=== PATIENT | female | born 1990 | race Two or more races ===

== ENCOUNTER → 2017-01-03 | Outpatient (CLI) | payer BC ==
--- NOTE | 2017-01-03 09:25 | MR ---
EXAMINATION TYPE: MR lumbar spine wo con DATE OF EXAM: 01/03/2017 COMPARISON: 08/17/2013 HISTORY: low back pain CONTRAST: 0 mL intravenous Gadavist. TECHNIQUE: Multiplanar, multisequence images of the lumbar spine were acquired. FINDINGS: Cord terminates at the L1 level. L5-S1: There is a large right paracentral disc herniation displacing the thecal sac towards the left. The exiting nerve root is compressed and displaced. Spinal canal stenosis secondary to disc herniati on. This is a significant new finding from 08/17/2013. Mild disc desiccation is present. L4-L5: There is a central disc herniation with moderate size and mild to moderate anterior thecal sac compression. Subligamentous disc extension is likely present centrally over the inferior endplate of L5. AP spinal canal stenosis is not present. Some possible contact of the exiting right L5 nerve solo t may be present. No spinal canal stenosis. No foraminal stenosis. Mild disc desiccation is presen t.. L3-L4: Broad-based disc bulge has mild anterior thecal sac contact. No AP spinal canal stenosis or ne ural foraminal stenosis is present. Minimal disc desiccation is present. L2-L3: No significant disc bulge or disc herniation. No spinal canal stenosis. No foraminal stenosi s. Neural foramen are patent.. L1-L2: No significant disc bulge or disc herniation. No spinal canal stenosis. No foraminal stenosi s. Neural foramen are patent.. T12-L1: No significant disc bulge or disc herniation. No spinal canal stenosis. No foraminal stenos is. Neural foramen are patent.. IMPRESSION: 1. Large right paracentral broad-based disc herniation L5-S1 with right S1 nerve root compression and displacement. There is some displacement of the thecal sac towards the left. Correlate with radicul ar right S1 symptoms. This is new from 2013. 2. Moderate central disc herniation L4-L5 with subligamentous extension inferiorly with mild to moder ate anterior thecal sac compression. Correlate for right L5 radicular symptoms.
== END | disposition home or self-care (01) ==
LOC: RADMRIMAIN 07:56
PROVIDERS: ATTEND Chiropractor
DX: M51.17 Intervertebral disc disorders with radiculopathy, lumbosacral region (principal)
CPT/HCPCS: 72148

== ENCOUNTER → 2017-01-11 | Outpatient (CLI) | payer BC ==
[2017-01-11 11:34] LABS: EKG EKG PERFORMED
--- NOTE | 2017-01-11 12:24 | XR ---
EXAMINATION TYPE: XR chest 2V DATE OF EXAM: 01/11/2017 COMPARISON: NONE TECHNIQUE: PA and lateral views submitted. HISTORY: Preop FINDINGS: The lungs are clear and there is no pneumothorax, pleural effusion, or focal pneumonia. IMPRESSION: 1. No acute process.
[2017-01-11 12:36] LABS: Partial Thromboplastin Time 25.6 sec (22.0-30.0); Prothrombin Time 10.5 sec (9.0-12.0)
[2017-01-11 12:37] LABS: Appearance,Urine Cloudy (Clear); Bacteria,Urine Rare /hpf; Basophils # (A) 0.1 k/uL (0-0.2); Basophils % (A) 1 %; Bilirubin,Urine Negative (Negative); CH 31.4; CHCM 33.5; Eosinophils # (A) 0.1 k/uL (0-0.7); Eosinophils % (A) 2 %; Glucose,Urine (UA) Negative (Negative); HCT 42.2 % (34.0-46.0); HDW 2.39; HGB 14.1 gm/dL (11.4-16.0); Ketones,Urine Negative (Negative); Leukocyte Esterase,Urine Negative (Negative); Luc % (Auto) 1; Lymphocytes # (A) 2.1 k/uL (1.0-4.8); Lymphocytes % (A) 23 %; MCH 31.3 pg (25.0-35.0); MCHC 33.3 g/dL (31.0-37.0); MCV 93.9 fL (80.0-100.0); Mean Platelet Volume 7.4; Monocytes # (A) 0.4 k/uL (0-1.0); Monocytes % (A) 4 %; Mucus,Urine Many /hpf; Neutrophils # (A) 6.2 k/uL (1.3-7.7); Neutrophils % (A) 69 %; Nitrite,Urine Negative (Negative); Particle Count 12502; Protein,Urine Trace (Negative); RBC 4.49 m/uL (3.80-5.40); RBC,Urine 4 /hpf (0-5); RDW 12.1 % (11.5-15.5); Specific Gravity,Urine 1.027 (1.001-1.035); Squamous Epithelial Cell,Urine 3 /hpf (0-4); UA Billing (MACRO vs. MICRO) MICRO; Urobilinogen,Urine <2.0 mg/dL (<2.0); WBC,Urine 9 /hpf (0-5)
[2017-01-11 12:54] LABS: Anion Gap 14 mmol/L; Blood Urea Nitrogen 21 mg/dL (7-17); Carbon Dioxide 24 mmol/L (22-30); Chloride 104 mmol/L (98-107); Glucose 102 mg/dL (74-99); Non-African American GFR(MDRD) >60 (>60 ml/min/1.73 sqM); Potassium 4.1 mmol/L (3.5-5.1); Sodium 142 mmol/L (137-145)
== END | disposition home or self-care (01) ==
LOC: LABPAT 11:06
PROVIDERS: ATTEND Orthopaedic Surgery Orthopaedic Surgery of the Spine
DX: Z01.810 Encounter for preprocedural cardiovascular examination (principal); Z01.818 Encounter for other preprocedural examination; R94.31 Abnormal electrocardiogram [ECG] [EKG]
CPT/HCPCS: 71020; 80048; 81001; 85025; 85610; 85730; 86850; 86900; 86901; 93005

== ENCOUNTER 2017-01-16 10:47 | Observation (INO) | payer BC ==
[2017-01-14 15:21] VITALS: BMI 34.7
[~2017-01-16 10:47] MED LIST: BACITRACIN 50,000 UNIT, POLYMYXIN B 500,000 UNIT in SODIUM CHLORIDE 0.9% IRRIGATIO 1,00... IRRIGATION ONE; HYDROmorphone 0.5 MG/0.5 ML SYRINGE IVP PRN; LIDOCAINE 1% 20 ML VIAL (10MG/ML) FOR IV START INTRADERMA PRN; ONDANSETRON 4 MG/2 ML VIAL IVP ONE; SCOPOLAMINE 1.5MG/72HR PATCH TRANSDERM ONE; ceFAZolin 2 GM in SODIUM CHLORIDE 0.9% 100 ML IVPB ONE
[2017-01-16 11:47] LABS: Glucose,Whole Blood 89 mg/dL (75-99)
[2017-01-16] MEDS: LACTATED RINGERS 1,000 ML IV SCH (11:47)
[2017-01-16] MEDS ORDERED: LIDOCAINE 1% 20 ML VIAL (10MG/ML) FOR IV START INTRADERMA ONE (11:47)
[2017-01-16] MEDS ORDERED: MIDAZOLAM 2 MG/2 ML VIAL IVP ONE ×2 (11:48→11:57)
[2017-01-16] MEDS ORDERED: fentaNYL (PF) 50 MCG/ML 2 ML AMP IVP ONE ×2 (11:49→11:57)
[2017-01-16] MEDS ORDERED: ROCURONIUM BROMIDE 10 MG/ML 10 ML VIAL IV ONE (12:51)
[2017-01-16] MEDS ORDERED: MIDAZOLAM 2 MG/2 ML VIAL ONE (12:51)
[2017-01-16] MEDS ORDERED: BUPIVACAINE (PF) 0.25% 30 ML VIAL SQ ONE (12:51)
[2017-01-16] MEDS ORDERED: LIDOCAINE 0.5% (PF) 5 MG/ML (50 ML SDV) SQ ONE (12:51)
[2017-01-16] MEDS ORDERED: LIDOCAINE 1% INJ 10MG/ML (20 ML MDV) ONE (12:51)
[2017-01-16] MEDS ORDERED: fentaNYL (PF) 50 MCG/ML 2 ML AMP ONE (12:51)
[2017-01-16] MEDS ORDERED: HYDROmorphone (PF) 1 MG/ML ONE (12:51)
[2017-01-16] MEDS ORDERED: THROMBIN (BOVINE) 5,000 UNIT VIAL TOPICAL ONE (12:51)
[2017-01-16] MEDS ORDERED: PROPOFOL 10 MG/ML 20 ML VIAL IV ONE (12:51)
[2017-01-16] MEDS ORDERED: SUCCINYLCHOLINE CHLORIDE 100 MG/5 ML SYR IV ONE (12:51)
[2017-01-16] MEDS ORDERED: GELATIN SPONGE,ABSORB (LARGE) 1 EACH SPONGE TOPICAL ONE (12:51)
[2017-01-16] MEDS ORDERED: methylPREDNISolone ACETATE 40 MG/ML 1 ML VIAL MISCELLANE ONE (13:45)
[2017-01-16] MEDS ORDERED: LACTATED RINGERS 1,000 ML IV ONE (13:55)
--- NOTE | 2017-01-16 14:01 | FL ---
Fluoroscopy HISTORY: Lumbar laminectomy 3 seconds fluoroscopy time supplied to the referring clinician. 1 intraoperative C-arm images docume nt the procedure. See dictated report from orthopedic surgery.
[2017-01-16] MEDS ORDERED: MAGNESIUM HYDROXIDE 2,400 MG/10 ML CUP PO PRN (14:04)
[2017-01-16] MEDS ORDERED: DIAZEPAM 5 MG TAB PO PRN (14:04)
[2017-01-16] MEDS ORDERED: KETOROLAC 30 MG/ML 1 ML VIAL IVP PRN (14:04)
[2017-01-16] MEDS ORDERED: BENZOCAINE/MENTHOL LOZENG 1 EACH LOZENGE MUCOUS MEM PRN (14:04)
[2017-01-16] MEDS ORDERED: HYDROmorphone 0.5 MG/0.5 ML SYRINGE IVP PRN (14:04)
[2017-01-16] MEDS ORDERED: HYDROcodone/APAP 5-325MG 1 EACH TAB PO PRN (14:04)
[2017-01-16] MEDS ORDERED: IBUPROFEN 600 MG TAB PO PRN (14:04)
[2017-01-16] MEDS ORDERED: HYDROmorphone 1 MG/ML 1 ML SYRINGE IVP PRN (14:04)
[2017-01-16] MEDS ORDERED: ALBUTEROL NEBULIZED 2.5 MG/3 ML INHALATION PRN (14:05)
[2017-01-16] MEDS ORDERED: HYDROcodone/APAP 10-325MG 1 EACH TAB PO PRN (14:05)
--- NOTE | 2017-01-16 14:12 | P.OP ---
Date of Procedure: 01/16/17 Preoperative Diagnosis: Massive disc herniation L5-S1, right lower extremity pain, right lower extremity radiculopathy, right lower extremity weakness, degenerative disc disease Postoperative Diagnosis: same Anesthesia: GETA Pathology: none sent Condition: stable Disposition: PACU Description of Procedure: BRIEF OPERATIVE NOTE Preoperative Diagnosis:large disc herniation L5-S1, right lower extremity radiculopathy, right lower extremity weakness, degenerative disc disease Postoperative Diagnosis:same Procedure: Laminectomy and decompressionL5-S1 Discectomy for decompressionL5-S1 Use of fluoroscopic guidance Surgeon: Dr. Geiger Drug Abuse Resistance Education Officer: Noble HAMILTON who is present throughout the entire the case persistence during positioning, dissection, exposure, visualization, and all crucial elements of the case as well as closure. Anesthesia: General anesthesia Estimated blood loss:approximately 30 mL Complications: None apparent Components implanted:none Disposition: To recovery room in good stable condition. OPERATIVE INDICATIONS The patient has been having issues in their lower back and lower extremities. her symptoms been quite severe particular at her right lower extremity and she' s been coming essentially incapacitated due to pain having great difficulty even trying to walk or get out of bed or do any regular light activities at home. She was found have a massive disc herniation L5-S1 on the right which correlated well with her low back and lower extremity pain. She is having some weakness at her right lower extremity over her gastrocnemius as well. The patient has been through conservative treatment. she is having continued severe symptoms despite conservative management. We discussed various treatment options including surgery, and the patient wishes to proceed with surgery We discussed the risk, patient's alternatives and benefits of surgery including but not limited to, risk of bleeding risk of infection, risk of need for further surgery, risk of decreased, loss of motion, loss of function, nerve damage, paralysis, heart attack, blindness and . OPERATIVE SUMMARY After discussing all the risks, patient alternatives and benefits at length, the patient elected to proceed with surgical intervention, signed informed consent, and presented for their procedure. The patient was seen and examined in the preoperative holding area and the surgical site was marked. The patient was given antibiotics and brought to the operating room. The patient was sedated and intubated by anesthesia in standard fashion. The patient was positioned on to the operating room table in a prone position on the appropriate frame which was well-padded and well molded. We were careful to pad any bony prominences and pressure points. We were careful to maintain the patient's cervical spine and good neutral alignment and position throughout. The patient was prepped and draped in a normal standard fashion. An appropriate timeout and keystone protocol performed. We were able to proceed with the surgery. Fluoroscopy was utilized to establish the appropriate levelat L5-S1. The local wound area was infiltrated with local anesthetic. An incision was made at the midline longitudinally over the appropriate levelsat L5-S1. Dissection was taken down subcutaneously to the level of the fascia which was split midline. Dissection was taken over the lamina. Intraoperative fluoroscopy was taken which showed a marker at the appropriate levelat L5-S1. With the appropriate level positively confirmed, we were able to proceed with laminectomy. The wound was copiously irrigated and suctioned dry as had been done periodically throughout the case. I performed a laminectomy with a combination of curettes and a high-speed bur and Kerrison rongeurs. A small medial facetectomy was performed again further access. A partial foraminotomy was also performed. it was obvious when taking down the ligament and flavum that there was distortion of the traversing nerve root and thecal sac due to a massive disc herniation. Portions of the ligamentum flavum were taken down to expose the dura and traversing nerve root. I was able to mobilize the traversing nerve root and gain access to the disc space. Note was made of obvious compression from the disc. Protecting the soft tissue structures, a small annulotomy was established. I was able to perform discectomy and remove any extruded disc fragments and any loose fragments from within the disc itself. a large extruded disc fragment was removed which gave initial excellent decompression. There are number of smaller extruded fragments which were also removed. Portions of the posterior annulus were worn and had fissures and these loose fragments were removed and loose annulus was removed as well. There is some significantdisc desiccation noted. I tried to preserve the disc annulus that appeared stable. There were no further extruded fragments noted. There is no evidence of dural tear or leak. Good hemostasis maintained. The wound was copiously irrigated and suctioned dry. Good decompression and discectomy was noted. We were able to proceed with closure. The fascia was closed for a watertight closure. The subcuticular tissue was closed with absorbable suture. The wound was cleaned and dried and dressed with the appropriate dressing. The drapes were broken down. The patient was gently rolled back onto their hospital bed being careful to maintain their cervical spine and good neutral alignment and position. They were woken up by anesthesia, extubated, and brought to the recovery room in good stable condition. The patient will be admitted to the hospital for observation and for appropriate postoperative care, medical management and monitoring. We will continue to follow them closely about the postoperative course.
[2017-01-16] MEDS: MEPERIDINE 50 MG/ML SYRINGE IVP ONE ×2 (14:47→14:57)
[2017-01-16] MEDS: SODIUM CHLORIDE 0.9% 1,000 ML IV SCH (15:52)
[2017-01-16] MEDS: METHOCARBAMOL 750 MG TAB PO SCH (20:21)
[2017-01-16] MEDS: ceFAZolin 2 GM in SODIUM CHLORIDE 0.9% 100 ML IVPB SCH (20:49)
[2017-01-16] MEDS: HYDROcodone/APAP 5-325MG 1 EACH TAB PO PRN (22:26)
[2017-01-17 03:00] VITALS: RESP 16
[2017-01-17] MEDS: SODIUM CHLORIDE 0.9% 1,000 ML IV SCH (03:07)
[2017-01-17] MEDS: LACTATED RINGERS 1,000 ML IV SCH (03:07)
[2017-01-17] MEDS: HYDROcodone/APAP 5-325MG 1 EACH TAB PO PRN ×2 (05:37→08:50)
[2017-01-17] MEDS: ceFAZolin 2 GM in SODIUM CHLORIDE 0.9% 100 ML IVPB SCH (05:37)
[2017-01-17 07:43] VITALS: BP 141/85; PULSE 83; TEMP 97.6
--- NOTE | 2017-01-17 07:43 | P.DS ---
Providers Date of admission: 01/16/17 22:27 Attending physician: Gertrude Geiger Primary care physician: [facility] Course: The patient presented on the day of admission as per her operative note. She feels her legs are doing much better since her surgery and she is relieved with a significant amount of her pain. She still has some numbness at the side of her toe. She has been up and around and is voiding freely. Physical Exam The incision site is clean dry and intact. There is no erythema no drainage. There is no purulence no evidence of infection. Her back is clear Abdomen soft and nontender. Chest has good excursion with deep inspiration and expiration. The patient has active and passive range of motion intact at the upper and lower extremities. There is some improvement with her strength with plantarflexion and dorsiflexion at her right lower extremity this morning. Hospital Course Postoperative day #1 status post laminectomy decompression and discectomy for decompression at L5-S1 for a massive disc herniation with right lower extremity radiculopathy and weakness. Patient feels that she is having excellent relief thus far with her surgery and is pleased with her results. The patient has been making good progress postoperatively. They have completed the prophylactic antibiotics without any signs or symptoms of infection. The patient has been able to advance their diet, and is tolerating diet adequately. The pain was initially controlled with IV medications and is now controlled appropriately with oral medications. The patient has been able to increase their mobilization. The patient has progressed appropriately. I think they are in good stable condition for discharge today. They will be sent home with appropriate prescriptions. I answered their questions to the best of my ability in a language that they can understand and they are agreeable with the plan. They will follow up as directed in approximately 2 weeks or sooner if she is having any problems. Patient Condition at Discharge: Good Plan - Discharge Summary New Discharge Prescriptions: No Action Methocarbamol [Robaxin] 750 mg PO BID Ibuprofen [Motrin] 800 mg PO Q8HR PRN PRN Reason: Pain HYDROcodone/APAP 10-325MG [[place] 10] 1 tab PO Q6H PRN PRN Reason: Pain Norgestimate-Ethinyl Estradiol [Sprintec 28 Day Tablet] 1 tab PO DAILY predniSONE 10 mg PO HS ALPRAZolam [Xanax] 1 mg PO Q8HR PRN PRN Reason: Anxiety Albuterol Inhaler [Ventolin Hfa Inhaler] 1 - 2 puff INHALATION RT-Q6H PRN PRN Reason: Shortness Of Breath Discharge Medication List HYDROcodone/APAP 10-325MG [[place] 10] 1 tab PO Q6H PRN 02/11/14 [History] Ibuprofen [Motrin] 800 mg PO Q8HR PRN 02/11/14 [History] Methocarbamol [Robaxin] 750 mg PO BID 02/11/14 [History] Norgestimate-Ethinyl Estradiol [Sprintec 28 Day Tablet] 1 tab PO DAILY 02/11/14 [History] ALPRAZolam [Xanax] 1 mg PO Q8HR PRN 01/14/17 [History] Albuterol Inhaler [Ventolin Hfa Inhaler] 1 - 2 puff INHALATION RT-Q6H PRN [History] predniSONE 10 mg PO HS 01/14/17 [History]
[2017-01-17] MEDS: METHOCARBAMOL 750 MG TAB PO SCH (08:49)
[2017-01-17] MEDS ORDERED: SENNOSIDES-DOCUSATE SODIUM 1 EACH TAB PO SCH (09:00)
[2017-01-17] MEDS ORDERED: NORGESTIMATE-ETHINYL ESTRADIOL 1 EACH TABLET PO SCH (09:00)
== END 2017-01-17 10:50 | disposition home or self-care (01) ==
LOC: OR 10:47 → 3SUR 14:13 → OR 22:26 → 3SUR 22:27
PROVIDERS: ADMIT Orthopaedic Surgery Orthopaedic Surgery of the Spine; ATTEND Orthopaedic Surgery Orthopaedic Surgery of the Spine
DX: M51.17 Intervertebral disc disorders with radiculopathy, lumbosacral region (principal); M47.817 Spondylosis without myelopathy or radiculopathy, lumbosacral region; F32.9 Major depressive disorder, single episode, unspecified; E03.9 Hypothyroidism, unspecified; J45.909 Unspecified asthma, uncomplicated; F41.9 Anxiety disorder, unspecified; Z79.52 Long term (current) use of systemic steroids; Z79.899 Other long term (current) drug therapy; Z82.49 Family history of ischemic heart disease and other diseases of the circulatory system
CPT/HCPCS: 63047; 81025; G0378 ×2; J2250; J1030; J2175; J0690 ×2; J2405; J2001 ×2; J3010; J1170 ×2; J0330; J2704; 86850; 86900; 86901

== ENCOUNTER → 2019-11-10 | Outpatient (CLI) | payer BC ==
--- NOTE | 2019-11-10 23:02 | MR ---
EXAMINATION TYPE: MR lumbar spine wo con DATE OF EXAM: 11/10/2019 COMPARISON: MRI lumbar spine 01/03/2017. HISTORY: LBP, rt side x 2 mos; hx surgery. TECHNIQUE: Multiplanar, multisequence images of the lumbar spine were acquired. Spinal alignment is normal. Vertebral body heights are preserved. Vertebral bone marrow is normal in signal. Multilevel degenerative disc disease, as described by level below. There is mild disc space narrowing and disc desiccation of L3-L4, L4-L5, and L5-S1.Lower thoracic cord is normal in signal. Conus termi nates normally at L1. Cauda equina nerve roots are normal in course and caliber. Paraspinal soft tissues are unremarkable. Visualized upper sacroiliac joints appear intact. T12-L1: No posterior disc herniation, protrusion, or bulging. No canal stenosis. Foramina are patent bilaterally. L1-L2: No posterior disc herniation, protrusion, or bulging. Nocanal stenosis. Foramina are patent bi laterally. L2-L3: No posterior disc herniation, protrusion, or bulging. Nocanal stenosis. Foramina are patent bi laterally. L3-L4: There is mild circumferential disc bulge with superimposed central disc protrusion effacing th e ventral aspect of the thecal sac. No canal stenosis. Foramina are patent bilaterally. L4-L5: There is circumferential disc bulge, with superimposed large central and right subarticular di sc protrusion measuring 1.1 x 0.9 cm, with 9 mm of inferior extrusion. Mild canal stenosis, and mass effect within the right lateral recess and the exiting right L4 nerve root. Foramina are mildly narro wed on the right and patent on the left. L5-S1: Moderate disc bulging. No Canal stenosis. Foramina are mildly narrowed on the right and patent on the left. IMPRESSION: L4-5 disc bulge with superimposed large 1.1 cm central and right subarticular disc protrusion, with 9 mm of inferior extrusion. There is mass effect on the right lateral recess, exiting right L4 nerve r oot, and mild canal stenosis.
== END | disposition home or self-care (01) ==
LOC: RADMRIMAIN 17:01
PROVIDERS: ATTEND Family Medicine
DX: M48.061 Spinal stenosis, lumbar region without neurogenic claudication (principal); M51.26 Other intervertebral disc displacement, lumbar region
CPT/HCPCS: 72148

== ENCOUNTER → 2020-01-19 | Outpatient (CLI) | payer BC | END | disposition home or self-care (01) | LOC: LABWHC1 11:51 | PROVIDERS: ATTEND Pediatrics Pediatric Infectious Diseases | DX: Z20.828 Contact with and (suspected) exposure to other viral communicable diseases (principal) | CPT/HCPCS: U0003; C9803 ==

== ENCOUNTER → 2020-05-10 | Outpatient (CLI) | payer BC ==
--- NOTE | 2020-05-10 13:22 | US ---
EXAMINATION TYPE: Transabdominal DATE OF EXAM: 05/10/2020 1:03 PM COMPARISON: NONE CLINICAL HISTORY: Z36 Confirm Dates. EXAM PERFORMED: EXAM MEASUREMENTS: GESTATIONAL AGE / DATING Physician Established: Not yet established Dates by LMP: (10 weeks/ 1 days) EDC: 12/05/20 Dates by First Scan: No previous this is first scan Dates by Current Scan for: Unable to date by luciana locke's study MATERNAL ANATOMY Uterus: 9.0 x 4.8 x 6.5cm Right Ovary: 2.6 x 2.3 x 2.1cm Left Ovary: 2.3 x 1.2 x 1.2cm Post CDS / Adnexa: wnl Presence of free fluid: no GESTATION / SURVEY CRL: 1.5 (8 weeks/0 days) Yolk Sac (normal less than 6mm): 2mm Heart Rate: No heart tones IUP: Demise Date of LMP: 02/29/20 Beta HcG (if available): Not available at this time demise at 8 weeks 0 days. No heart tones seen with M-mode, color doppler or power doppler. Preliminary results given to spa receptionist at [facility]. IMPRESSION: Findings compatible with demise.
== END | disposition home or self-care (01) ==
LOC: RADUSWWP 12:37
PROVIDERS: ATTEND Obstetrics & Gynecology
DX: Z36.9 Encounter for antenatal screening, unspecified (principal); Z34.01 Encounter for supervision of normal first pregnancy, first trimester
CPT/HCPCS: 76801; 76817; 82565; 82570; 82947; 83615; 84156; 84439; 84443; 84450; 84460; 84481; 84550; 85027; 86762; 86780; 86850; 86900; 86901; 87340; 87390

== ENCOUNTER 2020-05-12 11:55 | Day surgery (SDC) | payer MEDICAID, BC ==
[2020-05-10 13:44] LABS: HCT 39.7 % (34.0-46.0); HGB 13.5 gm/dL (11.4-16.0); MCH 30.8 pg (25.0-35.0); MCHC 34.1 g/dL (31.0-37.0); MCV 90.4 fL (80.0-100.0); Platelet Count 279 k/uL (150-450); RBC 4.39 m/uL (3.80-5.40); RDW 13.3 % (11.5-15.5); WBC 10.2 k/uL (3.8-10.6)
[2020-05-10 13:55] LABS: ALT 201 U/L (4-34); AST 107 U/L (14-36); African American GFR (CKD) >90 (>60 ml/min/1.73 sqM); Glucose 89 mg/dL (74-99); LDH 490 U/L (313-618); Non-African American GFR(CKD) >90 (>60 ml/min/1.73 sqM); Uric Acid 4.5 mg/dL (3.7-7.4)
[2020-05-10 13:59] LABS: Creatinine,Urine Random 208.3 mg/dL; Protein/Creatinine Ratio,Urine 0.058
[2020-05-10 14:09] LABS: T4, Free (Free Thyroxine) 0.69 ng/dL (0.78-2.19)
[2020-05-10 21:30] LABS: Hepatitis B Surface Antigen Non-Reactive (Non-Reactive)
[2020-05-10 21:38] LABS: HIV 2 AB Non-Reactive (Non-Reactive); HIV AB P24 Non-Reactive (Non-Reactive); HIV P24 AG Non-Reactive (Non-Reactive)
[2020-05-11 11:49] VITALS: BMI 40.7
--- NOTE | 2020-05-12 07:02 | P.HPOB ---
History of Present Illness H&P Date: 05/12/20 Chief Complaint: Missed 29 year old presents for suction D&C for missed at 8 weeks. Review of Systems All systems: negative Constitutional: Denies chills, Denies fever Eyes: denies blurred vision, denies pain Ears, nose, mouth and throat: Denies headache, Denies sore throat Cardiovascular: Denies chest pain, Denies shortness of breath Respiratory: Denies cough Gastrointestinal: Denies abdominal pain, Denies diarrhea, Denies nausea, Denies vomiting Genitourinary: Denies dysuria, Denies hematuria Musculoskeletal: Denies myalgias Integumentary: Denies pruritus, Denies rash Neurological: Denies numbness, Denies weakness Psychiatric: Denies anxiety, Denies depression Endocrine: Denies fatigue, Denies weight change Past Medical History Past Medical History: Asthma, Thyroid Disorder (hypothyroid) Additional Past Medical History / Comment(s): "Prehypertensive." LOW BACK PAIN, FREQUENT "INDIGESTION". elevated liver enzymes History of Any Multi-Drug Resistant Organisms: None Reported Past Surgical History: Back Surgery Past Anesthesia/Blood Transfusion Reactions: Motion Sickness Additional Past Anesthesia/Blood Transfusion Reaction / Comment(s): HAS NEVER RECEIVED ANESTHESIA Smoking Status: Never smoker - Past Family History Mother Family Medical History: No Reported History Father Additional Family Medical History / Comment(s): "Heart problems" Medications and Allergies Home Medications Medication Instructions Recorded Confirmed Type ALPRAZolam [Xanax] 1 mg PO Q8HR PRN 01/14/17 05/11/20 History Albuterol Inhaler (Mhu) [Ventolin 1 - 2 puff INHALATION RT-Q6H PRN 01/14/17 05/11/20 History Hfa Inhaler] Allergies Allergy/AdvReac Type Severity Reaction Status Date / Time levothyroxine sodium Allergy Rash/Hives Verified 05/11/20 11:35 [From Synthroid] thyroid,pork AdvReac Unknown Rash/Hives Verified 05/11/20 11:35 [From [place] Thyroid] Exam Osteopathic Statement: *. No significant issues noted on an osteopathic structural exam other than those noted in the History and Physical/Consult. Heart: RRR Lungs: CTAB Abdomen: soft, nontender Extremeties: neg john's Results Result Diagrams: 05/10/20 13:30 05/10/20 13:30 Abnormal Lab Results - Last 24 Hours (Table) 05/10/20 Range/Units 13:30 AST 107 H (14-36) U/L ALT 201 H (4-34) U/L TSH 5.050 H (0.465-4.680) mIU/L Free T4 0.69 L (0.78-2.19) ng/dL Assessment and Plan (1) Missed Status: Acute Code(s): O02.1 - MISSED SNOMED Code(s): 89965855 Plan: 1. suction D&C
[~2020-05-12 11:55] MED LIST changes: -BACITRACIN 50,000 UNIT, POLYMYXIN B 500,000 UNIT in SODIUM CHLORIDE 0.9% IRRIGATIO 1,00... IRRIGATION ONE; -HYDROmorphone 0.5 MG/0.5 ML SYRINGE IVP PRN; -LIDOCAINE 1% 20 ML VIAL (10MG/ML) FOR IV START INTRADERMA PRN; -ONDANSETRON 4 MG/2 ML VIAL IVP ONE; +Pre Op ABX Message 1 EACH MISC MISCELLANE ONE; -SCOPOLAMINE 1.5MG/72HR PATCH TRANSDERM ONE; -ceFAZolin 2 GM in SODIUM CHLORIDE 0.9% 100 ML IVPB ONE
[2020-05-12] MEDS ORDERED: LACTATED RINGERS 1,000 ML IV ONE ×2 (12:38→12:52)
[2020-05-12] MEDS ORDERED: ONDANSETRON 4 MG/2 ML VIAL ONE (12:40)
[2020-05-12] MEDS ORDERED: LIDOCAINE 1% (10MG/ML) FOR IV START INTRADERMA ONE (12:40)
[2020-05-12] MEDS ORDERED: MIDAZOLAM 2 MG/2 ML VIAL ONE (12:48)
[2020-05-12] MEDS ORDERED: PROPOFOL 10 MG/ML 20 ML VIAL IV ONE (12:48)
[2020-05-12] MEDS ORDERED: KETOROLAC 15 MG/ML 1 ML VIAL ONE (12:48)
[2020-05-12] MEDS ORDERED: DEXAMETHASONE SOD PHOSPHATE 4 MG/ML 1 ML VIAL IV ONE (12:48)
[2020-05-12] MEDS ORDERED: MIDAZOLAM 2 MG/2 ML VIAL IV ONE (12:48)
[2020-05-12] MEDS ORDERED: ONDANSETRON 4 MG/2 ML VIAL IVP ONE (12:48)
[2020-05-12] MEDS ORDERED: LIDOCAINE 1% INJ 10MG/ML (20 ML MDV) ONE (12:48)
[2020-05-12] MEDS ORDERED: fentaNYL (PF) 50 MCG/ML 2 ML AMP ONE (12:48)
[2020-05-12] MEDS ORDERED: SUCCINYLCHOLINE CHLORIDE 100 MG/5 ML SYR IV ONE (12:48)
[2020-05-12] MEDS ORDERED: SCOPOLAMINE 1.5MG/72HR PATCH TRANSDERM ONE (12:48)
--- NOTE | 2020-05-12 13:35 | P.OP ---
Date of Procedure: 05/12/20 Preoperative Diagnosis: 1. Missed Postoperative Diagnosis: 1. Missed Procedure(s) Performed: suction D&C Anesthesia: KEON Surgeon: Amena Floyd Estimated Blood Loss (ml): 50 IV fluids (ml): 200 Urine output (ml): 75 Pathology: other (uterine contents) Condition: stable Disposition: PACU Description of Procedure: Patient is taken the operating room and general anesthesia was obtained without difficulty. She prepped and draped in normal sterile fashion dorsal lithotomy position, legs placed in candycane stirrups. Bladder was drained of all urine. Weighted speculum place in vagina the anterior lip the cervix was grasped with a single tooth tenaculum. The cervix was dilated to #8 Hegar dilator. A #8 curved suction curet was introduced into the uterus. The curved suction curet was passed several times to obtained tissue and blood. Sharp curet was used to gently ensure that all tissue had been removed. Suction curet was introduced again. Hemostasis was achieved. All instruments removed from the vagina. Patient tolerated procedure well. Sponge and instrument counts are correct 2. She was taken to recovery room in stable condition.
[2020-05-12 13:37] VITALS: RESP 18; TEMP 97.5
[2020-05-12] MEDS ORDERED: HYDROmorphone 0.5 MG/0.5 ML SYRINGE IVP ONE ×2 (13:49)
[2020-05-12 15:22] VITALS: BP 150/93; PULSE 99
== END 2020-05-12 15:51 | disposition home or self-care (01) ==
LOC: OR 11:55
PROVIDERS: ATTEND Obstetrics & Gynecology
DX: O02.1 Missed abortion (principal); J45.909 Unspecified asthma, uncomplicated; E03.9 Hypothyroidism, unspecified; M54.5 Low back pain; R74.8 Abnormal levels of other serum enzymes; Z82.49 Family history of ischemic heart disease and other diseases of the circulatory system; Z79.899 Other long term (current) drug therapy; Z88.8 Allergy status to other drugs, medicaments and biological substances; K21.9 Gastro-esophageal reflux disease without esophagitis; E66.9 Obesity, unspecified; Z68.41 Body mass index [BMI] 40.0-44.9, adult; Z98.890 Other specified postprocedural states
CPT/HCPCS: 86900; 86901; 86762; 84439; 88305; 84481; 82570; 84156; 82565; 83615; 82947; 84443; 84450; 84460; 84550; 85027; 86850; 87340; 86780; 87390; 59820; J2250; J1100; J2405; J2001; J3010; J1885; J0330; J2704; J1170

== ENCOUNTER → 2021-01-17 | Outpatient (CLI) | payer MEDICAID, BC | END | disposition home or self-care (01) | LOC: LABWHC1 12:10 | PROVIDERS: ATTEND Obstetrics & Gynecology | DX: N92.6 Irregular menstruation, unspecified (principal) | CPT/HCPCS: 36415; 84702 ==

== ENCOUNTER → 2021-01-31 | Outpatient (CLI) | payer MEDICAID, BC ==
[2021-01-31 19:13] LABS: HCT 38.1 % (37.2-46.3); HGB 12.2 g/dL (12.0-15.0); MCH 29.8 pg (27.0-32.0); MCV 92.9 fL (80.0-97.0); Mean Platelet Volume 10.2 fL (9.5-12.2); Platelet Count 294 X 10*3/uL (140-440); RDW 13.1 % (11.5-14.5); WBC 8.43 X 10*3/uL (4.50-10.00)
[2021-01-31 22:30] LABS: African American GFR (CKD) 137.5 (60.0-200.0); Non-African American GFR(CKD) 118.7 (60.0-200.0)
[2021-01-31 22:39] LABS: Hepatitis B Surface Antigen Nonreactive (Nonreactive)
[2021-02-03 08:16] LABS: HIV 2 AB Non-Reactive (Non-Reactive); HIV AB P24 Non-Reactive (Non-Reactive); HIV P24 AG Non-Reactive (Non-Reactive)
== END | disposition home or self-care (01) ==
LOC: LABWHC1 11:58
PROVIDERS: ATTEND Obstetrics & Gynecology
DX: Z34.81 Encounter for supervision of other normal pregnancy, first trimester (principal); Z3A.00 Weeks of gestation of pregnancy not specified
CPT/HCPCS: 36415; 82565; 82947; 85027; 86762; 86780; 86850; 86900; 86901; 87340; 87390

== ENCOUNTER → 2021-03-04 | Outpatient (CLI) | payer MEDICAID, BC, OTHER | END | disposition home or self-care (01) | LOC: LABWHC1 10:58 | PROVIDERS: ATTEND Emergency Medicine | DX: Z20.822 Contact with and (suspected) exposure to COVID-19 (principal) | CPT/HCPCS: 87635 ==

== ENCOUNTER → 2021-03-13 | Outpatient (CLI) | payer MEDICAID, BC, OTHER | END | disposition home or self-care (01) | LOC: LABWHC1 14:44 | PROVIDERS: ATTEND Emergency Medicine | DX: Z20.822 Contact with and (suspected) exposure to COVID-19 (principal) | CPT/HCPCS: 87636 ==

== ENCOUNTER → 2021-03-15 | Outpatient (CLI) | payer MEDICAID, BC, OTHER | END | disposition home or self-care (01) | LOC: LABWHC1 11:50 | PROVIDERS: ATTEND Emergency Medicine | DX: Z20.822 Contact with and (suspected) exposure to COVID-19 (principal) | CPT/HCPCS: 87635 ==

== ENCOUNTER → 2021-03-17 | Outpatient (CLI) | payer MEDICAID, BC, OTHER ==
[2021-03-17 15:34] LABS: Creatinine,Urine Random 193.7 mg/dL; Protein/Creatinine Ratio,Urine 0.062
[2021-03-17 19:35] LABS: HCT 37.8 % (37.2-46.3); HGB 12.3 g/dL (12.0-15.0); MCH 29.9 pg (27.0-32.0); MCHC 32.5 g/dL (32.0-37.0); MCV 91.7 fL (80.0-97.0); Mean Platelet Volume 10.4 fL (9.5-12.2); Platelet Count 287 X 10*3/uL (140-440); RBC 4.12 X 10*6/uL (4.10-5.20); RDW 13.3 % (11.5-14.5); WBC 8.45 X 10*3/uL (4.50-10.00)
[2021-03-17 20:11] LABS: African American GFR (CKD) 143.8 (60.0-200.0); T4, Free (Free Thyroxine) 0.86 ng/dL (0.800-1.800)
== END | disposition home or self-care (01) ==
LOC: LABWHC1 10:43
PROVIDERS: ATTEND Obstetrics & Gynecology
DX: O30.049 Twin pregnancy, dichorionic/diamniotic, unspecified trimester (principal); O99.281 Endocrine, nutritional and metabolic diseases complicating pregnancy, first trimester; E03.9 Hypothyroidism, unspecified; Z3A.00 Weeks of gestation of pregnancy not specified
CPT/HCPCS: 36415; 82565; 82570; 83615; 84156; 84439; 84443; 84450; 84460; 85027

== ENCOUNTER 2021-05-08 14:48 | Outpatient (CLI) | payer MEDICAID, BC ==
[2021-05-08 16:26] LABS: Appearance,Urine Clear (Clear); Bilirubin,Urine Negative (Negative); Blood,Urine Large (Negative); Color,Urine Yellow; Glucose,Urine (UA) Negative (Negative); Ketones,Urine Negative (Negative); Leukocyte Esterase,Urine Negative (Negative); Mucus,Urine Rare /hpf; Nitrite,Urine Negative (Negative); PH, Urine 6.5 (5.0-8.0); Protein,Urine Trace (Negative); RBC,Urine 1 /hpf (0-5); Specific Gravity,Urine 1.015 (1.001-1.035); Squamous Epithelial Cell,Urine 2 /hpf (0-4); Urobilinogen,Urine <2.0 mg/dL (<2.0); WBC,Urine 1 /hpf (0-5)
[2021-05-08 16:35] LABS: Creatinine,Urine Random 112.3 mg/dL
[2021-05-08 16:37] LABS: Creatinine,Urine Random 110.2 mg/dL; Protein/Creatinine Ratio,Urine 0.154
[2021-05-08 16:42] LABS: HCT 32.2 % (34.0-46.0); HGB 11.1 gm/dL (11.4-16.0); MCH 31.6 pg (25.0-35.0); MCHC 34.3 g/dL (31.0-37.0); MCV 92.2 fL (80.0-100.0); Mean Platelet Volume 8.2; Platelet Count 284 k/uL (150-450); WBC 10.4 k/uL (3.8-10.6)
[2021-05-08 16:51] LABS: ALT 15 U/L (4-34); AST 18 U/L (14-36); African American GFR (CKD) >90 (>60 ml/min/1.73 sqM); Blood Urea Nitrogen 6 mg/dL (7-17); LDH 354 U/L (313-618); Non-African American GFR(CKD) >90 (>60 ml/min/1.73 sqM); Uric Acid 5.1 mg/dL (3.7-7.4)
[2021-05-08] MEDS ORDERED: LABETALOL 100 MG TAB PO STA (17:18)
--- NOTE | 2021-05-08 17:39 | P.PN ---
Progress Note - Text Progress Note Date: 05/08/21 Patient presents to triage with complaints of episode of spotting while at work and also she took her blood pressure was elevated. This is a pleasant 30-year-old 2 para 0 female estimated date of confinement 09/08/2021 estimated gestational age 22-3/7 weeks gestation who is being taken care of by Dr. Floyd for this . Patient's is complicated by known twin gestation and is also seen maternal medicine for care. Patient's blood pressures in the office have been running 130s to 140s over 90s and has not required any medications. Patient states that in the past she may have had borderline hypertension but is never been treated. Patient was at work today and did notice some dark red blood and at that time did check her blood pressure and it was elevated with systolic of 160. Patient did report that she had intercourse in the last 12 hours. The pressures here ranging from 152/71- 166/92. I did do preeclampsia labs and these were normal. Incidentally she had blood work done by maternal medicine back in March the did show mild AST and ALTs elevation however they are normal today. I did get a complete OB ultrasound due to the patient's spotting and it did not show evidence of any abruption or placenta previa and it is apparent that her spotting episode was due to recent intercourse. I had a long discussion with Katerina and her in regards to her current clinical situation including the elevated blood pressures. At this time I'm recommending that she institute Labetalol 100 mg by mouth twice a day follow up tomorrow with Dr. Floyd for repeat blood pressure check. She understands that certainly she is going to be watched very closely and she may need to have her medications increased during the . She still at significant increased risk of developing preeclampsia later on is already on a baby aspirin. She understands the current clinical management and agrees. We'll give her a dose of Labetalol now and discharge home follow up Dr. Floyd tomorrow 1:30.
[2021-05-08 17:42] LABS: Band Neutrophils % 1 %; Lymphocytes # (M) 1.77 k/uL (1.0-4.8); Monocytes # (M) 0.73 k/uL (0-1.0); Neutrophils % (M) 75 %; Nucleated Red Blood Cells 0 /100 WBC (0-0); Total Cells Counted 100
--- NOTE | 2021-05-09 21:46 | US ---
EXAMINATION TYPE: US OB >= 14 wk twins DATE OF EXAM: 05/08/2021 COMPARISON: NONE CLINICAL HISTORY: 22 week bleeding twins. Limited . Placenta, size, . GESTATIONAL AGE / DATING Physician Established: (22 weeks/3 days) EDC: 09-08-21 Dates by Current Scan for Baby A: (22 weeks/1 days) EDC: 09-10-21 Dates by Current Scan for Baby B: (22 weeks/2 days) EDC: 09-09-21 GENERAL TWIN SURVEY TWIN A MEMBRANE SEEN: Yes CERVICAL LENGTH (transabdominal; norm > 3.0cm): 2.9 cm CERVICAL LENGTH (transvaginal: norm> 2.5cm): not needed per RN (Supplemental transvaginal imaging performed to verify cervical length.) TWIN A: SURVEY/BIOMETRY PLACENTA: Anterior PREVIA: No previa ESA:? 10.7 cm? PRESENTATION: Breech BPD: 5.2 cm 21 weeks / 6 days HC: 19.5 cm 21 weeks / 5 days AC: 18.2 cm 23 weeks / 1 days FL: 3.8 cm 22 weeks / 1 days ESTIMATED WEIGHT IN GRAMS: 479 grams ESTIMATED WEIGHT IN LBS/OZS: 1 lbs. 1 oz. WEIGHT PERCENTAGE BASED ON ESTABLISHED DATES: 29% HC/AC: 1.0 FL/AC: 21% HEART RATE: 152 bpm RHYTHM: Normal TWIN B: SURVEY/BIOMETRY PRESENTATION: Vertex BPD: 5.2 cm 21 weeks / 6 days HC: 19.5 cm 21 weeks / 5 days AC: 18.2 cm 23 weeks / 1 days FL: 3.8 cm 22 weeks / 1 days ESTIMATED WEIGHT IN GRAMS: 504 grams ESTIMATED WEIGHT IN LBS/OZS: 1 lbs. 2 oz. WEIGHT PERCENTAGE BASED ON ESTABLISHED DATES: 44% HC/AC: 1.07 FL/AC: 21 HEART RATE: 152 bpm RHYTHM: Normal Placenta measurements were not performed by the steam meter reader. IMPRESSION: Twin live gestations as described above.
== END 2021-05-08 17:59 | disposition home or self-care (01) ==
LOC: FBPOP 14:48
PROVIDERS: ATTEND Obstetrics & Gynecology
DX: O30.042 Twin pregnancy, dichorionic/diamniotic, second trimester (principal); Z3A.22 22 weeks gestation of pregnancy; Z88.8 Allergy status to other drugs, medicaments and biological substances; Z91.014 Allergy to mammalian meats
CPT/HCPCS: 76805; 76810; 81001; 82565; 82570; 83615; 84156; 84450; 84460; 84520; 84550; 85025; 99215

== ENCOUNTER 2021-05-30 15:13 | Observation (INO) | payer MEDICAID, BC ==
[2021-05-30 15:46] LABS: Appearance,Urine Clear (Clear); Bilirubin,Urine Negative (Negative); Blood,Urine Negative (Negative); Color,Urine Yellow; Glucose,Urine (UA) Negative (Negative); Ketones,Urine Negative (Negative); Leukocyte Esterase,Urine Negative (Negative); Nitrite,Urine Negative (Negative); Protein,Urine Trace (Negative); Specific Gravity,Urine 1.013 (1.001-1.035); Urobilinogen,Urine <2.0 mg/dL (<2.0)
[2021-05-30 15:52] LABS: Creatinine,Urine Random 87.3 mg/dL; Protein/Creatinine Ratio,Urine 0.252
[2021-05-30 15:58] LABS: Basophils % (A) 0 %; Eosinophils # (A) 0.1 k/uL (0-0.7); Eosinophils % (A) 1 %; HCT 32.2 % (34.0-46.0); Lymphocytes # (A) 1.9 k/uL (1.0-4.8); Lymphocytes % (A) 21 %; MCH 31.8 pg (25.0-35.0); MCHC 34.2 g/dL (31.0-37.0); MCV 93.1 fL (80.0-100.0); Monocytes # (A) 0.5 k/uL (0-1.0); Monocytes % (A) 5 %; Neutrophils # (A) 6.8 k/uL (1.3-7.7); Neutrophils % (A) 72 %; Platelet Count 283 k/uL (150-450); RBC 3.46 m/uL (3.80-5.40); RDW 14.2 % (11.5-15.5); WBC 9.5 k/uL (3.8-10.6)
[2021-05-30 16:05] LABS: ALT 15 U/L (4-34); AST 22 U/L (14-36); African American GFR (CKD) >90 (>60 ml/min/1.73 sqM); Blood Urea Nitrogen 6 mg/dL (7-17); LDH 391 U/L (313-618); Non-African American GFR(CKD) >90 (>60 ml/min/1.73 sqM); Uric Acid 4.9 mg/dL (3.7-7.4)
[2021-05-30 16:08] LABS: INR 0.8 (<1.2); Partial Thromboplastin Time 22.6 sec (22.0-30.0); Prothrombin Time 9.4 sec (9.0-12.0)
[2021-05-30] MEDS ORDERED: LABETALOL 100 MG TAB PO STA (16:37)
[2021-05-30] MEDS: LABETALOL 200 MG TAB PO SCH (21:13)
[2021-05-31] MEDS: LEVOTHYROXINE 50 MCG TAB PO SCH (07:27)
[2021-05-31] MEDS: PRENATAL VIT-IRON-FOLIC ACID 1 EACH CAP PO SCH (08:56)
[2021-05-31] MEDS: LABETALOL 200 MG TAB PO SCH (08:56)
[2021-05-31] MEDS ORDERED: LABETALOL 100 MG TAB PO STA (12:11)
--- NOTE | 2021-05-31 16:58 | P.HPOB ---
History of Present Illness H&P Date: 05/31/21 Chief Complaint: HTN 30 year old presents at 25 weeks 4 days with twin gestation to my office with elevated BP. She has no symptoms of pre-eclampsia and labs are normal. heart tones are 135 for both with moderate variability. Her BPs are quite high here and I would like to increase her BP medication and keep her to see get them under control. Review of Systems All systems: negative Constitutional: Denies chills, Denies fever Eyes: denies blurred vision, denies pain Ears, nose, mouth and throat: Denies headache, Denies sore throat Cardiovascular: Denies chest pain, Denies shortness of breath Respiratory: Denies cough Gastrointestinal: Denies abdominal pain, Denies diarrhea, Denies nausea, Denies vomiting Genitourinary: Denies dysuria, Denies hematuria Musculoskeletal: Denies myalgias Integumentary: Denies pruritus, Denies rash Neurological: Denies numbness, Denies weakness Psychiatric: Denies anxiety, Denies depression Endocrine: Denies fatigue, Denies weight change Past Medical History Past Medical History: Asthma, Thyroid Disorder Additional Past Medical History / Comment(s): LOW BACK PAIN, FREQUENT "INDIGESTION". History of Any Multi-Drug Resistant Organisms: None Reported Past Surgical History: Back Surgery Past Anesthesia/Blood Transfusion Reactions: Motion Sickness Additional Past Anesthesia/Blood Transfusion Reaction / Comment(s): HAS NEVER RECEIVED ANESTHESIA Past Psychological History: Anxiety Smoking Status: Never smoker Past Alcohol Use History: None Reported Additional Past Alcohol Use History / Comment(s): none since 03/2020 Past Drug Use History: None Reported - Past Family History Mother Family Medical History: No Reported History Father Additional Family Medical History / Comment(s): "Heart problems" Medications and Allergies Home Medications Medication Instructions Recorded Confirmed Type Albuterol Inhaler (Mhu) [Ventolin 1 - 2 puff INHALATION RT-Q6H PRN 01/14/17 05/30/21 History Hfa Inhaler] Aspirin 81 mg PO DAILY 05/08/21 05/30/21 History Levothyroxine Sodium [Synthroid] 50 mcg PO DAILY 05/08/21 05/30/21 History Pnv,Calcium 72/Iron/Folic Acid 1 tab OP DAILY 05/08/21 05/30/21 History [ Plus Tablet] Allergies Allergy/AdvReac Type Severity Reaction Status Date / Time No Known Allergies Allergy Verified 05/30/21 19:21 Exam Osteopathic Statement: *. No significant issues noted on an osteopathic structural exam other than those noted in the History and Physical/Consult. Vital Signs Temp Pulse Pulse Resp BP BP BP 05/31/21 16:00 97.9 F 86 20 150/100 05/31/21 12:09 97.4 F L 92 16 158/86 05/31/21 11:00 86 16 147/80 05/31/21 09:00 97 166/90 05/31/21 07:15 98 16 143/85 05/31/21 04:00 98.0 F 96 16 145/71 05/30/21 20:00 98.3 F 88 16 177/83 05/30/21 17:17 98.9 F 102 H 18 168/90 Pulse Ox 05/31/21 16:00 05/31/21 12:09 99 05/31/21 11:00 05/31/21 09:00 05/31/21 07:15 99 05/31/21 04:00 05/30/21 20:00 05/30/21 17:17 99 Intake and Output 05/31/21 05/31/21 05/31/21 06:59 14:59 22:59 Other: # Voids 2 1 HEart: RRR Lungs: CTAB Abdomen: soft, nontender, gravid Extremeties: 3/4 DTR, +1 edema Results Result Diagrams: 05/30/21 15:50 05/30/21 15:50 Assessment and Plan (1) Twin gestation in second trimester Current Visit: Yes Status: Acute Code(s): O30.002 - TWIN PREG, UNSP NUM PLCNTA & AMNIO SACS, SECOND TRIMESTER SNOMED Code(s): 80498596 (2) Hypertension in Current Visit: No Status: Acute Code(s): O16.9 - UNSPECIFIED MATERNAL HYPERTENSION, UNSPECIFIED TRIMESTER SNOMED Code(s): 27067754 Plan: 1. labetalol 200mg bid 2. monitor BPs 3. reg diet 4. doppler FHT q day
--- NOTE | 2021-05-31 17:08 | P.PN ---
Progress Note - Text Progress Note Date: 05/31/21 30-year-old at 25 weeks and 5 days with twin gestation admitted for blood pressure control. Her blood pressures were elevated 150s to 160s over 90s to 100s. I will increase labetalol to 300 mg twice a day. Continue to monitor patient. She denies nausea, vomiting, chest pain, shortness of breath or any calf pain. heart tones are still present and normal.
[2021-05-31] MEDS: LABETALOL 100 MG TAB PO SCH ×2 (17:19→21:44)
[2021-05-31] MEDS ORDERED: LABETALOL 100 MG TAB PO SCH (21:00)
[2021-06-01 05:00] VITALS: TEMP 97.8
--- NOTE | 2021-06-01 07:54 | P.DS ---
Providers Date of admission: 05/30/21 16:45 Expected date of discharge: 06/01/21 Attending physician: Amena Floyd Primary care physician: Stated None - Discharge Diagnosis(es) (1) Twin gestation in second trimester Current Visit: Yes Status: Acute (2) Hypertension in Current Visit: No Status: Acute Hospital Course: Pt presented with increased BP and twin gestation at 25+ weeks. I placed pt on labetalol and titrated dose over the last few days to keep her BP 130-150/70-80. Pt is feeling well on 300mg TID. heart tones are 135 with moderate variability. Pt will be discharged home on labetalol and will follow up with me for BP check in a few days and MFM in a few weeks. Plan - Discharge Summary New Discharge Prescriptions: New Labetalol [Trandate] 300 mg PO Q8HR #90 tablet Levothyroxine Sodium 88 mcg PO DAILY #30 tablet No Action Albuterol Inhaler (Mhu) [Ventolin Hfa Inhaler] 1 - 2 puff INHALATION RT-Q6H PRN PRN Reason: Shortness Of Breath Levothyroxine Sodium [Synthroid] 50 mcg PO DAILY Aspirin 81 mg PO DAILY Pnv,Calcium 72/Iron/Folic Acid [ Plus Tablet] 1 tab OP DAILY Discharge Medication List Albuterol Inhaler (Mhu) [Ventolin Hfa Inhaler] 1 - 2 puff INHALATION RT-Q6H PRN 01/14/17 [History] Aspirin 81 mg PO DAILY 05/08/21 [History] Levothyroxine Sodium [Synthroid] 50 mcg PO DAILY 05/08/21 [History] Pnv,Calcium 72/Iron/Folic Acid [ Plus Tablet] 1 tab OP DAILY 05/08/21 [History] Labetalol [Trandate] 300 mg PO Q8HR #90 tablet 06/01/21 [Rx] Levothyroxine Sodium 88 mcg PO DAILY #30 tablet 06/01/21 [Rx] Follow up Appointment(s)/Referral(s): Amena Floyd DO [Doctor of Osteopathic Medicine] - 1 Week Discharge Disposition: HOME SELF-CARE
[2021-06-01] MEDS: LABETALOL 100 MG TAB PO SCH (08:48)
[2021-06-01] MEDS: PRENATAL VIT-IRON-FOLIC ACID 1 EACH CAP PO SCH (08:49)
[2021-06-01] MEDS: LEVOTHYROXINE 50 MCG TAB PO SCH (08:49)
[2021-06-01 08:54] VITALS: BP 131/87; PULSE 80; RESP 20
== END 2021-06-01 10:28 | disposition home or self-care (01) ==
LOC: FBPOP 15:13 → 4FBP 16:45
PROVIDERS: ADMIT Obstetrics & Gynecology; ATTEND Obstetrics & Gynecology
DX: O16.2 Unspecified maternal hypertension, second trimester (principal); Z3A.25 25 weeks gestation of pregnancy; O30.002 Twin pregnancy, unspecified number of placenta and unspecified number of amniotic sacs, second trimester; O99.342 Other mental disorders complicating pregnancy, second trimester; F41.9 Anxiety disorder, unspecified; O99.512 Diseases of the respiratory system complicating pregnancy, second trimester; J45.909 Unspecified asthma, uncomplicated; O99.283 Endocrine, nutritional and metabolic diseases complicating pregnancy, third trimester; E07.9 Disorder of thyroid, unspecified; Z79.82 Long term (current) use of aspirin; Z79.890 Hormone replacement therapy
CPT/HCPCS: 82570; 84156; 82565; 83615; 84450; 84460; 84520; 84550; 85025; 85384; 85610; 85730; 81003; G0378 ×3; S0197 ×2

== ENCOUNTER 2021-06-14 15:00 | Outpatient (CLI) | payer MEDICAID, BC ==
[2021-06-14 16:02] LABS: Basophils % (A) 0 %; Eosinophils # (A) 0.1 k/uL (0-0.7); Eosinophils % (A) 1 %; HCT 35.2 % (34.0-46.0); Lymphocytes # (A) 1.9 k/uL (1.0-4.8); Lymphocytes % (A) 20 %; MCH 32.6 pg (25.0-35.0); MCHC 34.1 g/dL (31.0-37.0); MCV 95.5 fL (80.0-100.0); Mean Platelet Volume 9.1; Monocytes # (A) 0.4 k/uL (0-1.0); Monocytes % (A) 4 %; Neutrophils # (A) 6.8 k/uL (1.3-7.7); Neutrophils % (A) 73 %; Platelet Count 255 k/uL (150-450); RBC 3.69 m/uL (3.80-5.40); RDW 14.6 % (11.5-15.5); WBC 9.4 k/uL (3.8-10.6)
[2021-06-14] MEDS ORDERED: LABETALOL 100 MG TAB PO STA (16:05)
[2021-06-14 16:12] LABS: ALT 15 U/L (4-34); AST 26 U/L (14-36); African American GFR (CKD) >90 (>60 ml/min/1.73 sqM); Blood Urea Nitrogen 12 mg/dL (7-17); LDH 443 U/L (313-618); Non-African American GFR(CKD) >90 (>60 ml/min/1.73 sqM); Uric Acid 6.2 mg/dL (3.7-7.4)
[2021-06-14 16:31] LABS: Appearance,Urine Clear (Clear); Bilirubin,Urine Negative (Negative); Blood,Urine Negative (Negative); Color,Urine Yellow; Glucose,Urine (UA) Negative (Negative); Ketones,Urine Negative (Negative); Leukocyte Esterase,Urine Negative (Negative); Nitrite,Urine Negative (Negative); PH, Urine 6.5 (5.0-8.0); Protein,Urine 2+ (Negative); Specific Gravity,Urine 1.022 (1.001-1.035); Squamous Epithelial Cell,Urine <1 /hpf (0-4); Urobilinogen,Urine <2.0 mg/dL (<2.0); WBC,Urine <1 /hpf (0-5)
[2021-06-14 16:40] LABS: Creatinine,Urine Random 183.7 mg/dL
[2021-06-14 16:41] LABS: Creatinine,Urine Random 185.4 mg/dL
[2021-06-14 16:48] LABS: Protein/Creatinine Ratio,Urine 1.899
[2021-06-14] MEDS ORDERED: MAGNESIUM SULFATE-WATER PMX 4 GM in WATER FOR INJECTION 1 100ML.BAG IVPB ONE (17:01)
[2021-06-14] MEDS ORDERED: MAGNESIUM SULFATE-WATER PMX 20 GM in WATER FOR INJECTION 1 500ML.BAG IV SCH (17:15)
[2021-06-14] MEDS ORDERED: BETAMET ACET-BETAMETH SOD PHOS 6 MG/ML MDV IM SCH (17:15)
[2021-06-14] MEDS ORDERED: LACTATED RINGERS 1,000 ML IV SCH (17:25)
--- NOTE | 2021-06-14 17:41 | P.HPOB ---
History of Present Illness H&P Date: 06/14/21 Chief Complaint: high BP 30 yea old when he 7 weeks [address] jo twin gestation presented to my office with blood pressure 180/100. She is on labetalol 300 mg 3 times daily for chronic hypertension and had normal labs last week. She did take her labetalol today but her blood pressure is still elevated. She has no signs or symptoms of preeclampsia other than increased blood pressure. Her labs showed a PC ratio of 1.89, all other labs were within normal limits. Patient was diagnosed with preeclampsia and is with twin gestation. I will be tra nsferring her to a tertiary care facility where they can deliver and care for these twins. Review of Systems All systems: negative Constitutional: Denies chills, Denies fever Eyes: denies blurred vision, denies pain Ears, nose, mouth and throat: Denies headache, Denies sore throat Cardiovascular: Denies chest pain, Denies shortness of breath Respiratory: Denies cough Gastrointestinal: Denies abdominal pain, Denies diarrhea, Denies nausea, Denies vomiting Genitourinary: Denies dysuria, Denies hematuria Musculoskeletal: Denies myalgias Integumentary: Denies pruritus, Denies rash Neurological: Denies numbness, Denies weakness Psychiatric: Denies anxiety, Denies depression Endocrine: Denies fatigue, Denies weight change Past Medical History Past Medical History: Asthma, Thyroid Disorder Additional Past Medical History / Comment(s): LOW BACK PAIN, FREQUENT "INDIGESTION". History of Any Multi-Drug Resistant Organisms: None Reported Past Surgical History: Back Surgery Past Anesthesia/Blood Transfusion Reactions: Motion Sickness Additional Past Anesthesia/Blood Transfusion Reaction / Comment(s): HAS NEVER RECEIVED ANESTHESIA Smoking Status: Never smoker - Past Family History Mother Family Medical History: No Reported History Father Additional Family Medical History / Comment(s): "Heart problems" Medications and Allergies Home Medications Medication Instructions Recorded Confirmed Type Albuterol Inhaler (Mhu) [Ventolin 1 - 2 puff INHALATION RT-Q6H PRN 01/14/17 05/30/21 History Hfa Inhaler] Aspirin 81 mg PO DAILY 05/08/21 05/30/21 History Levothyroxine Sodium [Synthroid] 50 mcg PO DAILY 05/08/21 05/30/21 History Pnv,Calcium 72/Iron/Folic Acid 1 tab OP DAILY 05/08/21 05/30/21 History [ Plus Tablet] Labetalol [Trandate] 300 mg PO Q8HR #90 tablet 06/01/21 Rx Levothyroxine Sodium 88 mcg PO DAILY #30 tablet 06/01/21 Rx Allergies Allergy/AdvReac Type Severity Reaction Status Date / Time No Known Allergies Allergy Verified 05/30/21 19:21 Exam Osteopathic Statement: *. No significant issues noted on an osteopathic structural exam other than those noted in the History and Physical/Consult. Intake and Output 06/14/21 06/14/21 06/14/21 06:59 14:59 22:59 Other: Weight 122.47 kg Heart: Regular rate and rhythm Lungs: Clear to auscultation bilaterally Abdomen: Soft, nontender Extremities: Negative Homans sign, 3 out of 4 DTR Results Result Diagrams: 06/14/21 15:48 06/14/21 15:48 Abnormal Lab Results - Last 24 Hours (Table) 06/14/21 06/14/21 06/14/21 Range/Units 15:40 15:40 15:48 RBC 3.69 L (3.80-5.40) m/uL Urine Protein 2+ H (Negative) U Random Total Protein 355 H (<12) mg/dL Assessment and Plan (1) Dichorionic diamniotic twin gestation Current Visit: Yes Status: Acute Code(s): O30.049 - TWIN , DICHORIONIC/DIAMNIOTIC, UNSP TRIMESTER SNOMED Code(s): 461553980 (2) Chronic hypertension with superimposed pre-eclampsia Current Visit: Yes Status: Acute Code(s): O11.9 - PRE-EXISTING HYPERTENSION WITH PRE-ECLAMPSIA, UNSP TRIMESTER SNOMED Code(s): 83296053 Plan: 1. Magnesium sulfate was started per protocol 2. One dose of Celestone given so far 3. Discussed transfer with the maternal medicine specialist that the patient has seen in the past, Dr. Friedman out of [facility] who did accept transfer.
[2021-06-14] MEDS ORDERED: hydrALAZINE HCL 20 MG/ML 1 ML VIAL IVP STA (18:00)
[2021-06-14 18:43] VITALS: BP 185/100; PULSE 91; RESP 18; TEMP 98
--- NOTE | 2021-06-15 02:28 | P.MSEPDOC ---
Presenting Problems - Arrival Data Date of Arrival on Unit: 06/14/21 Time of Arrival on Unit: 15:00 Mode of Transport: Ambulatory - Complaint OB-Reason for Admission/Chief Complaint: PIH Medical History - Information : 2 Para: 0 Term: 0 : 0 Abortions: Spontaneous or Elective: 0 Number of Living Children: 0 - Gestational Age Gestational Age by TAMELA (wks/days): 27 Weeks and 5 Days - History Complications: Chronic HTN Review of Systems - Review of Systems Constitutional: No problems Breast: No problems ENT: No problems Cardiovascular: No problems Respiratory: No problems Gastrointestinal: No problems Genitourinary: No problems Musculoskeletal: No problems Neurological: No problems Skin: No problems Vital Signs - Temperature Temperature: 98.0 F Temperature Source: Oral - Pulse Right Pulse Oximetery Pulse Rate: 91 Pulse Assessment Method: Pulse Oximetry - Respirations Respiratory Rate: 18 Oxygen Delivery Method: Room Air O2 Sat by Pulse Oximetry: 97 - Blood Pressure Right Arm Blood Pressure: 185/100 Blood Pressure Mean: 128 Blood Pressure Source: Automatic Cuff Medical Screen Scoring - Assessment - Baby A Baseline FHR: 145 Heart Rate - NICHD Category: Category I (Normal) NST: Reactive Physician Notification - Physician Notified Physician Notified Date: 06/14/21 Physician Notified Time: 15:52 Physician: Amena Floyd New Order Received: Yes - Notification Comment Comment: BP medication ordered, called back with labwork, medications ordered, dr on her way over to transfer patient Maternal Triage Index - Maternal Triage Index Presenting for scheduled procedure w/no complaint: No - Stat/Priority 1 Stat Priority 1: Yes Provider Notified: Amena Floyd Provider Notified Time: 15:52 Criteria Met for Priority 1: notified of elevated BP Disposition - Disposition OB Disposition: Transfer to other dept./facility Transferred to:: [facility] I agree with the RN Medical Screening Exam: Yes Case reviewed; plan agreed upon as documented in EMR&OBIX.: Yes Diagnosis: PRE-EXISTING HYPERTENSION WITH PRE-ECLAMPSIA, UNSP TRIMESTER
== END 2021-06-14 18:20 | disposition short-term general hospital (02) ==
LOC: FBPOP 15:00
PROVIDERS: ATTEND Obstetrics & Gynecology
DX: O11.2 Pre-existing hypertension with pre-eclampsia, second trimester (principal); O30.042 Twin pregnancy, dichorionic/diamniotic, second trimester; O99.512 Diseases of the respiratory system complicating pregnancy, second trimester; J45.909 Unspecified asthma, uncomplicated; Z3A.27 27 weeks gestation of pregnancy; Z79.899 Other long term (current) drug therapy
CPT/HCPCS: 99215; 96361; 96365; 96372; 96375; 82570; 84156; 82565; 83615; 84450; 84460; 84520; 84550; 85025; 81001; J0360; J3475 ×2; J0702

== ENCOUNTER → 2021-06-14 | Outpatient (CLI) | payer MEDICAID, BC ==
[2021-06-14 14:58] LABS: HCT 33.6 % (37.2-46.3); HGB 10.7 g/dL (12.0-15.0); MCH 30.4 pg (27.0-32.0); MCHC 31.8 g/dL (32.0-37.0); MCV 95.5 fL (80.0-97.0); Mean Platelet Volume 11.2 fL (9.5-12.2); NRBC Per 100 WBC 0.2 /100 WBCS (0.0-0.0); Platelet Count 252 X 10*3/uL (140-440); RBC 3.52 X 10*6/uL (4.10-5.20); RDW 14.7 % (11.5-14.5); WBC 9.11 X 10*3/uL (4.50-10.00)
== END | disposition home or self-care (01) ==
LOC: LABWHC1 09:31
PROVIDERS: ATTEND Obstetrics & Gynecology
DX: Z34.82 Encounter for supervision of other normal pregnancy, second trimester (principal); Z3A.00 Weeks of gestation of pregnancy not specified
CPT/HCPCS: 36415; 82950; 85027